=== PATIENT | female | born 1965 | race Caucasian/White ===

== ENCOUNTER 2019-11-13 17:21 | Emergency (ER) | payer OTHER ==
[~2019-11-13] VITALS: Ht 162.6 cm; Wt 75.0 kg
[2019-11-13 17:31] VITALS: BP 124/93
--- NOTE | 2019-11-13 17:47 | NUR ---
FIRST CONTACT WITH PT. PT STATES "I'VE HAD A TOOTHACHE ON THE LOWER RIGHT. IT STARTED HURTING YESTERDAY. TODAY IT SWELLED UP." PT'S AOX4. RESPS EVEN AND UNLABORED.
--- NOTE | 2019-11-13 18:36 | NUR ---
THIS RN WAS NOT ABLE TO FIND BONE WAX AT [facility]. CHARGE EN/PA NOTIFIED. THIS RN CALLED [facility], BUT THEY STATES " I DON'T HAVE IT." PT STATES"I'LL ASK SOMEONE."
--- NOTE | 2019-11-13 18:52 | NUR ---
Patient given discharge instructions and they have confirmed that they understand the instructions. Patient ambulatory with steady gait.
== END 2019-11-13 18:53 | disposition home or self-care (01) ==
LOC: ED 18:41
DX: K08.89 Other specified disorders of teeth and supporting structures (principal)
CPT/HCPCS: 99283